=== PATIENT | male | born 1995 | race Caucasian/White ===

== ENCOUNTER 2017-10-05 15:01 | Emergency (ER) | payer OTHER ==
[~2017-10-05] VITALS: Ht 175.3 cm; Wt 79.1 kg
[2017-10-05 15:14] VITALS: BP 129/76; Ht 175.3 cm; Wt 79.1 kg
== END 2017-10-05 16:33 | disposition home or self-care (01) ==
LOC: ED 15:01
DX: S52.121A Displaced fracture of head of right radius, initial encounter for closed fracture (principal); J45.909 Unspecified asthma, uncomplicated; K21.9 Gastro-esophageal reflux disease without esophagitis; W18.39XA Other fall on same level, initial encounter; Y93.51 Activity, roller skating (inline) and skateboarding; Y92.89 Other specified places as the place of occurrence of the external cause; Y99.8 Other external cause status

== ENCOUNTER 2018-01-23 11:36 | Emergency (ER) | payer OTHER ==
[~2018-01-23] VITALS: Ht 175.3 cm; Wt 80.3 kg
[2018-01-23 11:44] VITALS: Ht 175.3 cm; Wt 80.3 kg
[2018-01-23 12:31] VITALS: BP 134/69
== END 2018-01-23 12:32 | disposition home or self-care (01) ==
LOC: ED 11:36
DX: J02.9 Acute pharyngitis, unspecified (principal); J45.909 Unspecified asthma, uncomplicated; K21.9 Gastro-esophageal reflux disease without esophagitis; F90.9 Attention-deficit hyperactivity disorder, unspecified type; Z98.890 Other specified postprocedural states

== ENCOUNTER 2018-12-13 16:15 | Emergency (ER) | payer OTHER ==
[~2018-12-13] VITALS: Ht 175.3 cm; Wt 78.5 kg
[2018-12-13 16:19] VITALS: BP 109/61; Ht 175.3 cm; Wt 78.5 kg
== END 2018-12-13 17:12 | disposition left against medical advice (07) ==
LOC: ED 16:15
DX: Z53.21 Procedure and treatment not carried out due to patient leaving prior to being seen by health care provider (principal)